=== PATIENT | female | born 1970 | race Caucasian/White ===

== ENCOUNTER 2019-06-21 10:34 | Inpatient (IN) ==
[2019-06-21] MEDS ORDERED: TYLENOL PO PRN (17:25)
[2019-06-21] MEDS ORDERED: ZOFRAN IV PRN (17:25)
[2019-06-21] MEDS ORDERED: VANCOMYCIN IV PER PHARMACY MISC SCH (17:45)
[2019-06-21 17:46] LABS: BASO# 0.03 X1000 (0.0-0.2); BASO% 0.4 % (0.0-0.8); EOS# 0.32 X1000 (0.0-0.7); EOS% 4.7 % (0.0-10.0); HEMATOCRIT 38.4 % (37.0-47.0); HEMOGLOBIN 12.6 g/dL (12.0-16.0); IMM GRAN# 0.02 X1000 (0.0-0.04); IMM GRAN% 0.3 % (0.0-0.5); LYMPH# 2.04 X1000 (1.2-3.4); LYMPH% 29.7 % (20.5-51.1); MCH 32.1 PG (27-31); MCHC 32.8 g/dL (33-37); MONO# 0.57 X1000 (0.11-0.59); MONO% 8.3 % (1.7-9.3); MPV 9.5 FL (7.4-10.4); NEUT# 3.89 X1000 (1.4-6.5); NEUT% 56.6 % (42.2-75.2); PLT 366 X1000 (130-400); RBC 3.92 XMIL (4.2-5.4); WBC 6.87 X1000 (4.8-10.8)
[2019-06-21 17:55] LABS: AGAP 13; ALB/GLOB RATIO 1.2; ALBUMIN 3.9 g/dL (3.5-5.0); ALKALINE PHOSPHATASE 86 U/L (32-104); BUN 23 mg/dL (8-22); CALCIUM 9.4 mg/dL (8.8-10.2); CHLORIDE 100 mmol/L (98-107); COSMO 280; ESTIMATED GFR 60; GLUCOSE 81 mg/dL (70-104); GOT 15 U/L (10-30); GPT 10 U/L (10-36); POTASSIUM 4.1 mmol/L (3.5-5.1); SODIUM 139 mmol/L (136-145); TCO2 26 mmol/L (25-35); TOTAL PROTEIN 7.1 g/dL (6.3-8.3)
[2019-06-21 18:16] LABS: TOTAL BILIRUBIN < 0.15 mg/dL (0.20-1.00)
[2019-06-21] MEDS: ROCEPHIN 1 GM in NS 50 ML IV SCH (18:30)
[2019-06-21] MEDS: PERCOCET-5 PO PRN (18:34)
[2019-06-21] MEDS ORDERED: VANCOMYCIN 1,700 MG in NS 250 ML IV ONE (20:00)
[2019-06-21] MEDS: FLEXERIL PO SCH (20:20)
[2019-06-21] MEDS: NEURONTIN PO SCH (20:20)
[2019-06-21] MEDS: ADDERALL PO SCH (20:20)
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
[2019-06-22] MEDS: MOTRIN PO PRN ×3 (00:21→21:02)
[2019-06-22] MEDS: PERCOCET-5 PO PRN ×3 (00:25→13:41)
[2019-06-22] MEDS: FLEXERIL PO SCH ×3 (07:54→20:14)
[2019-06-22] MEDS: NEURONTIN PO SCH ×3 (07:54→20:14)
[2019-06-22 08:10] LABS: AGAP 12; ALB/GLOB RATIO 1.3; ALBUMIN 3.4 g/dL (3.5-5.0); ALKALINE PHOSPHATASE 84 U/L (32-104); BUN 21 mg/dL (8-22); CHLORIDE 103 mmol/L (98-107); COSMO 280; CREATININE 0.8 mg/dL (0.5-0.9); ESTIMATED GFR > 60; GLUCOSE 92 mg/dL (70-104); GOT 12 U/L (10-30); GPT 9 U/L (10-36); SODIUM 139 mmol/L (136-145); TCO2 24 mmol/L (25-35); TOTAL PROTEIN 6.1 g/dL (6.3-8.3)
[2019-06-22 08:14] LABS: BASO# 0.02 X1000 (0.0-0.2); BASO% 0.3 % (0.0-0.8); EOS# 0.35 X1000 (0.0-0.7); EOS% 5.6 % (0.0-10.0); HEMATOCRIT 37.4 % (37.0-47.0); IMM GRAN# 0.02 X1000 (0.0-0.04); IMM GRAN% 0.3 % (0.0-0.5); LYMPH# 2.51 X1000 (1.2-3.4); MCH 31.6 PG (27-31); MCHC 32.1 g/dL (33-37); MCV 98.4 FL (81-99); MONO# 0.63 X1000 (0.11-0.59); MPV 9.8 FL (7.4-10.4); NEUT# 2.75 X1000 (1.4-6.5); NEUT% 43.8 % (42.2-75.2); PLT 348 X1000 (130-400); TOTAL BILIRUBIN < 0.15 mg/dL (0.20-1.00); WBC 6.28 X1000 (4.8-10.8)
[2019-06-22] MEDS: WELLBUTRIN XL PO SCH (09:59)
[2019-06-22] MEDS: ADDERALL PO SCH ×2 (09:59→20:14)
[2019-06-22] MEDS: ZIAC 5/6.25 MG PO SCH (10:00)
--- NOTE | 2019-06-22 17:32 | PROGRESS NOTE ---
DATE: 06/22/2019 SUBJECTIVE: The patient has no major complaints. She is stable. OBJECTIVE: Blood pressure is 121/80, heart rate of 80, respiratory rate 20, temperature 98.8 degrees, 98% on room air.Cardiovascular: Regular rate and rhythm. Pulmonary: Bilateral breath sounds, clear to auscultation. GI was soft, nontender, nondistended. Bowel sounds are positive. JASVIR DRAIN: White count 6, hemoglobin and hematocrit 12 and 37, platelets 348,000. ASSESSMENT AND PLAN: Facial cellulitis around left ear. There has been some marginal improvement. I am going to continue the antibiotics. I do think she is improving. Her ear is less swollen. There is less erythema. May require another 1-2 days. I would strongly consider she is a candidate for Orbactiv or telavancin as an outpatient, but we will see how she does in the next couple days, because oral antibiotic options are going to be difficult. cc: Ed Solomon MD
[2019-06-22] MEDS: ROCEPHIN 1 GM in NS 50 ML IV SCH (17:35)
[2019-06-22] MEDS: PERCOCET-10 PO SCH ×2 (17:36→21:02)
[2019-06-22] MEDS ORDERED: VANCOMYCIN 1,500 MG in NS 250 ML IV SCH (20:00)
[2019-06-22] MEDS ORDERED: NS 500 ML ONE (20:15)
[2019-06-23] MEDS: PERCOCET-10 PO SCH ×6 (01:11→22:05)
[2019-06-23] MEDS: NEURONTIN PO SCH ×3 (09:05→20:59)
[2019-06-23] MEDS: ADDERALL PO SCH ×2 (09:05→16:28)
[2019-06-23] MEDS: FLEXERIL PO SCH ×3 (09:06→20:59)
[2019-06-23] MEDS: WELLBUTRIN XL PO SCH (09:06)
[2019-06-23] MEDS: ZIAC 5/6.25 MG PO SCH (09:06)
[2019-06-23] MEDS: MOTRIN PO PRN ×2 (10:21→17:47)
[2019-06-23] MEDS: ROCEPHIN 1 GM in NS 50 ML IV SCH (17:48)
[2019-06-23] MEDS ORDERED: NS 500 ML ONE (17:53)
--- NOTE | 2019-06-23 17:58 | PROGRESS NOTE ---
DATE: 06/23/2019 SUBJECTIVE: Patient has no major complaints. OBJECTIVE: Vitals: Blood pressure is 109/71, heart rate of 75, respiratory rate 18, temperature 98.7 degrees, 99% on room air. Cardiovascular: Regular rate and rhythm. Pulmonary: Bilateral breath sounds, clear to auscultation. GI: Soft, nontender, nondistended. Bowel sounds are positive. LABS: White count 6, hemoglobin and hematocrit 12 and 37, platelets 348. Basic was normal. PROBLEM LIST: Facial cellulitis extending over left ear. Slow steady improvement. Vancomycin and Rocephin have worked. There are no cultures because nothing has grown out. Her white count is normal. I anticipate discharge. I am going to see how she does on clindamycin, and we will anticipate discharge on that tomorrow, maybe clindamycin and Omnicef. Disposition: Anticipate possible discharge tomorrow. cc: Ed Solomon MD
[2019-06-23] MEDS: CLINDAMYCIN 600 MG/D5W 600 MG/50 ML IVPB IV SCH (20:59)
[2019-06-24] MEDS: PERCOCET-10 PO SCH ×3 (01:55→10:10)
[2019-06-24] MEDS: MOTRIN PO PRN ×2 (01:55→10:15)
[2019-06-24] MEDS: CLINDAMYCIN 600 MG/D5W 600 MG/50 ML IVPB IV SCH (05:00)
[2019-06-24] MEDS: ADDERALL PO SCH (08:27)
[2019-06-24] MEDS: FLEXERIL PO SCH (08:28)
[2019-06-24] MEDS: NEURONTIN PO SCH (08:28)
[2019-06-24] MEDS: ZIAC 5/6.25 MG PO SCH (08:28)
[2019-06-24] MEDS: WELLBUTRIN XL PO SCH (08:29)
[2019-06-24 11:10] VITALS: BP 127/86
--- NOTE | 2019-06-24 15:04 | DISCHARGE SUMMARY ---
ADMISSION DATE: 06/21/2019 DISCHARGE DATE: 06/24/2019 DISCHARGE DIAGNOSES: 1. Facial cellulitis of the left temporal area, and surrounding her auricle pinna of her ear. 2. History of polychondritis. 3. Hypertension. 4. Reported history of rheumatoid arthritis. HOSPITAL COURSE: The patient had been treated as an outpatient with Levaquin and doxycycline but had persistent pain and swelling. She was seen by Dr. Prasad and directly admitted for facial cellulitis, failing outpatient therapy. She was at that point, placed on vancomycin in addition to Rocephin. She improved significantly within even just 24 hours but she still had some persistent redness. Her ear was less swollen. We discussed outpatient treatment options. We switched her to clindamycin and she seemed to improve, although she still has a little bit of trace erythema around the area and still some trace inflammation around the auricle itself. No fevers. No white count and she is going to be set up to go home with Orbactiv 1200 mg to get as an outpatient infusion. DISCHARGE MEDICATIONS: Adderall 20 b.i.d., bisoprolol hydrochlorothiazide 6.255/6.25 daily, gabapentin 300 t.i.d. Percocet q.4 Wellbutrin 150, clindamycin 300 t.i.d. for 10 days, Flexeril 10 t.i.d., ibuprofen. DISCHARGE CONDITION: Stable. FOLLOW-UP INSTRUCTIONS: Follow up with Dr. Prasad in 1 week. Again, she is going to come back as an outpatient for infusion of Orbactiv as a single dose. cc: Ed Solomon MD
== END 2019-06-24 12:05 | disposition home or self-care (01) | DRG 603 ==
LOC: DIRADM 10:34 → EDIPHOLD 16:12 → 4N 18:09
PROVIDERS: ATTEND Internal Medicine